=== PATIENT | male | born 1970 | race African-American/Black ===

== ENCOUNTER 2017-06-24 14:53 | Emergency (ER) | payer MEDICAID ==
[~2017-06-24] VITALS: Ht 180.3 cm; Wt 84.0 kg
[2017-06-24] MEDS ORDERED: ACETAMINOPHEN WITH CODEINE 300/30MG TABLET PO ONE (16:45)
[2017-06-24 19:38] VITALS: BP 124/72
== END 2017-06-24 19:48 | disposition home or self-care (01) ==
LOC: ER 14:53
DX: S52.501A Unspecified fracture of the lower end of right radius, initial encounter for closed fracture (principal); W19.XXXA Unspecified fall, initial encounter; Y93.89 Activity, other specified; Y92.89 Other specified places as the place of occurrence of the external cause; Y99.8 Other external cause status
CPT/HCPCS: 29125; 73110; 99284; Z7610; A4565

== ENCOUNTER 2019-03-02 16:46 | Emergency (ER) | payer MEDICAID ==
[~2019-03-02] VITALS: Ht 177.8 cm; Wt 85.0 kg
[2019-03-02] MEDS ORDERED: TETANUS, DIPHTHERIA, PERTUSSIS VAC/PF 0.5ML (>7YR OLD) IM ONE (18:15)
[2019-03-02] MEDS ORDERED: BACITRACIN ZINC OINT UDPKT TOP ONE (18:15)
[2019-03-02 19:49] VITALS: BP 117/75
== END 2019-03-02 19:55 | disposition home or self-care (01) ==
LOC: ER 16:46
DX: S81.811A Laceration without foreign body, right lower leg, initial encounter (principal); W01.0XXA Fall on same level from slipping, tripping and stumbling without subsequent striking against object, initial encounter; Y93.89 Activity, other specified; Y92.018 Other place in single-family (private) house as the place of occurrence of the external cause
CPT/HCPCS: 12004; 73562; 90471; 90715; 99283

== ENCOUNTER → 2019-03-05 | Emergency (ER) | payer MEDICAID ==
[~2019-03-05] VITALS: Ht 180.3 cm; Wt 82.0 kg
[2019-03-05 06:36] VITALS: BP 114/75
== END ==
LOC: ER 07:58
DX: S81.012D Laceration without foreign body, left knee, subsequent encounter (principal); X58.XXXD Exposure to other specified factors, subsequent encounter
CPT/HCPCS: 99281

== ENCOUNTER 2019-03-15 08:54 | Emergency (ER) | payer MEDICAID ==
[~2019-03-15] VITALS: Ht 180.3 cm; Wt 81.0 kg
[2019-03-15 09:03] VITALS: BP 138/82
== END 2019-03-15 11:55 | disposition home or self-care (01) ==
LOC: ER 08:54
DX: S81.012D Laceration without foreign body, left knee, subsequent encounter (principal); X58.XXXD Exposure to other specified factors, subsequent encounter; E78.00 Pure hypercholesterolemia, unspecified
CPT/HCPCS: 99282